=== PATIENT | female | born 1965 | race Caucasian/White ===

== ENCOUNTER 2018-03-24 16:38 | Emergency (ER) | payer BC ==
[~2018-03-24] VITALS: Ht 162.6 cm; Wt 55.3 kg
[2018-03-24] MEDS ORDERED: ANAS1TAB50 PO (16:52)
[2018-03-24] MEDS ORDERED: NYQUIL (16:52)
[2018-03-24] MEDS ORDERED: IV NORMAL SALINE 1000 ML BAG IV ONE (17:00)
--- NOTE | 2018-03-24 17:19 | NUR ---
PT IS IN ROOM #1B. DR ISABEL EVALUATED THE PT.
[2018-03-24 17:29] LABS: BASOPHILS % (AUTO) 0.5 % (0.0-2.0); EOSINOPHILS % (AUTO) 0.9 % (0.0-7.0); HEMATOCRIT 38.8 % (31.2-41.9); HEMOGLOBIN 13.4 g/dL (10.9-14.3); LYMPHOCYTES # (AUTO) 0.7 K/uL (20.0-40.0); LYMPHOCYTES % (AUTO) 28.8 % (20.5-51.5); MEAN CORPUSCULAR HEMOGLOBIN 32.5 uug (24.7-32.8); MEAN CORPUSCULAR HGB CONC 35 g/dL (32.3-35.6); MEAN CORPUSCULAR VOLUME 94.1 fL (75.5-95.3); MONOCYTES # (AUTO) 0.3 K/uL (2.0-10.0); MONOCYTES % (AUTO) 13.6 % (0.0-11.0); NEUTROPHILS # (AUTO) 1.3 K/uL (1.8-8.9); NEUTROPHILS % (AUTO) 56.2 % (38.5-71.5); PLATELET COUNT (AUTO) 282 K/uL (179-408); RED BLOOD CELL COUNT(AUTO) 4.12 MIL/uL (3.63-4.92); WHITE BLOOD COUNT (AUTO) 2.3 K/uL (3.8-11.8)
[2018-03-24 17:44] LABS: POTASSIUM 3.5 mmol/L (3.5-5.1)
[2018-03-24] MEDS ORDERED: LEVOFLOXACIN 750 MG TABLET PO ONE (17:45)
[2018-03-24] MEDS ORDERED: LEVOFLOXACIN 750 MG TABLET ONE (17:47)
[2018-03-24 17:49] LABS: BILIRUBIN,DIRECT 0.1 mg/dL (0.0-0.2); BILIRUBIN,TOTAL 0.2 mg/dL (0.2-1.0); TOTAL PROTEIN, SERUM 7.7 g/dL (6.4-8.2)
[2018-03-24] MEDS ORDERED: IBUPROFEN 600 MG TABLET ONE (18:00)
[2018-03-24] MEDS ORDERED: IBUPROFEN 600 MG TABLET PO ONE (18:00)
--- NOTE | 2018-03-24 18:04 | NUR ---
PT WAS D/C'd TO HOME AFTER DR ISABEL RE-EVALUATION. D/C INSTRUCTIONS GIVEN TO THE PT.
[2018-03-24 18:50] VITALS: BP 116/72
== END 2018-03-24 18:50 | disposition home or self-care (01) ==
LOC: ER 16:40
DX: J06.9 Acute upper respiratory infection, unspecified (principal); Z88.5 Allergy status to narcotic agent; Z88.8 Allergy status to other drugs, medicaments and biological substances; Z79.899 Other long term (current) drug therapy
CPT/HCPCS: 36415; 70030-TC; 71045; 83605; 85025; 87040; 93005; A4663; J7030

== ENCOUNTER 2019-03-25 17:29 | Emergency (ER) | payer BC ==
[~2019-03-25] VITALS: Ht 162.6 cm; Wt 57.6 kg
[~2019-03-25 17:29] MED LIST: ANAS1TAB50 PO; NYQUIL
[2019-03-25] MEDS ORDERED: OMEP20CA15 PO (17:43)
[2019-03-25 18:14] LABS: BASOPHILS % (AUTO) 1.1 % (0.0-2.0); EOSINOPHILS # (AUTO) 0.2 K/uL (0.0-0.7); EOSINOPHILS % (AUTO) 7.6 % (0.0-7.0); HEMATOCRIT 38.1 % (31.2-41.9); HEMOGLOBIN 12.7 g/dL (10.9-14.3); LYMPHOCYTES # (AUTO) 1.2 K/uL (20.0-40.0); LYMPHOCYTES % (AUTO) 40.4 % (20.5-51.5); MEAN CORPUSCULAR HEMOGLOBIN 31.4 uug (24.7-32.8); MEAN CORPUSCULAR HGB CONC 33 g/dL (32.3-35.6); MEAN CORPUSCULAR VOLUME 94.4 fL (75.5-95.3); MONOCYTES # (AUTO) 0.4 K/uL (2.0-10.0); MONOCYTES % (AUTO) 14.5 % (0.0-11.0); NEUTROPHILS # (AUTO) 1.1 K/uL (1.8-8.9); NEUTROPHILS % (AUTO) 36.4 % (38.5-71.5); PLATELET COUNT (AUTO) 283 K/uL (179-408); RED BLOOD CELL COUNT(AUTO) 4.04 MIL/uL (3.63-4.92); WHITE BLOOD COUNT (AUTO) 2.9 K/uL (3.8-11.8)
--- NOTE | 2019-03-25 18:18 | NUR ---
PT IS IN ROOM #1B. DR CHA EVALUATED THE PT.
[2019-03-25 18:22] LABS: CREATININE 0.9 mg/dL (0.6-1.3)
[2019-03-25 18:27] LABS: BILIRUBIN,DIRECT 0.1 mg/dL (0.0-0.2); BILIRUBIN,TOTAL 0.3 mg/dL (0.2-1.0); TOTAL PROTEIN, SERUM 7.5 g/dL (6.4-8.2)
--- NOTE | 2019-03-25 19:01 | NUR ---
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
--- NOTE | 2019-03-25 19:02 | NUR ---
RECEIVED HAND OFF AND SBAR RECEIVED FR DAY SHIFT OUTGOING RN
[2019-03-25 19:14] LABS: BAND % (MANUAL) 3 % (0-10); EOSINOPHILS % (MANUAL) 7 % (0-8); LYMPHOCYTES % (MANUAL) 38 % (20-40); MONOCYTES % (MANUAL) 13 % (2-10); NEUTROPHILS % (MANUAL) 39 % (42-75)
[2019-03-25] MEDS ORDERED: IV NORMAL SALINE 250 ML IV ONE (19:26)
[2019-03-25] MEDS ORDERED: SWABABLE VALVE TRANSFER SET EA MC ONE (19:26)
[2019-03-25] MEDS ORDERED: IOHEXOL 350 100 ML INFUS..BTL ONE (19:26)
[2019-03-25] MEDS ORDERED: ALBUTEROL SULFATE 2.5 MG/3 ML NEBU ONE (19:38)
[2019-03-25] MEDS ORDERED: IPRATROPIUM BROMIDE 0.5 MG/2.5 ML NEBU ONE (19:38)
--- NOTE | 2019-03-25 19:42 | NUR ---
RT AT BEDSIDE FOR BREATHING TREATMENT [employer] AT BEDSIDE PT AOX3 WITH R WRIST SALINE LOCK INTACT CONSENT SIGNED
[2019-03-25] MEDS ORDERED: IPRATROPIUM BROMIDE 0.5 MG/2.5 ML NEBU NEB ONE (19:45)
[2019-03-25] MEDS ORDERED: ALBUTEROL SULFATE 2.5 MG/3 ML NEBU NEB ONE (19:45)
[2019-03-25] MEDS ORDERED: ASPIRIN 81 MG TAB.CHEW PO ONE (20:45)
[2019-03-25] MEDS ORDERED: ASPIRIN 81 MG TAB.CHEW ONE (21:06)
--- NOTE | 2019-03-25 22:41 | NUR ---
Patient discharged to home in stable conditon. Written and verbal after care instructions given. Patient verbalizes understanding of instructions. AMBULATORY W/ STABLE GAIT ALL BELONGINGS W/ PT +SHOULDER IMMOBILIZER TO R SHOULDER INTACT IV DC, DRESSED
[2019-03-25 22:42] VITALS: BP 131/82
== END 2019-03-25 22:43 | disposition home or self-care (01) ==
LOC: ER 17:33
DX: R07.89 Other chest pain (principal); R06.02 Shortness of breath; Z88.8 Allergy status to other drugs, medicaments and biological substances; Z79.899 Other long term (current) drug therapy
CPT/HCPCS: 36415; 71045; 71275; 80048; 80076; 83880; 84484 ×2; 85007; 85025; 85730; 87400; 93005; 94640; 99284; Q9967; 70030-TC; A4663; J3590; J7050

== ENCOUNTER 2021-10-23 19:09 | Emergency (ER) | payer BC ==
[~2021-10-23] VITALS: Ht 162.6 cm; Wt 56.7 kg
[~2021-10-23 19:09] MED LIST changes: -NYQUIL; +OMEP20CA15 PO
--- NOTE | 2021-10-23 19:45 | NUR ---
Dr. Bueno at bedside. MSE in progress.
[2021-10-23] MEDS ORDERED: NITROGLYCERIN 0.4 MG/TAB BOTTLE SL ONE ×2 (20:00→20:13)
[2021-10-23] MEDS ORDERED: NITROGLYCERIN OINT 1 GM PACKET TP ONE ×2 (20:00→20:14)
[2021-10-23 20:08] LABS: HEMATOCRIT 39.2 % (31.2-41.9); MEAN CORPUSCULAR VOLUME 93.1 fL (75.5-95.3); PLATELET COUNT (AUTO) 336 K/uL (179-408)
[2021-10-23 20:15] VITALS: BP 110/66
[2021-10-23 20:16] LABS: CARBON DIOXIDE 31 mmol/L (21-32); CHLORIDE 103 mmol/L (98-107); GLUCOSE 91 mg/dL (74-106); POTASSIUM 3.6 mmol/L (3.5-5.1); UREA NITROGEN, BLOOD 16 mg/dL (7-18)
[2021-10-23 20:32] LABS: ALANINE AMINOTRANSFERASE 44 U/L (14-59); ALKALINE PHOSPHATASE 59 U/L (50-136); ASPARTATE AMINOTRANSFERASE 33 U/L (15-37); BILIRUBIN,DIRECT 0.2 mg/dL (0.0-0.2); BILIRUBIN,TOTAL 0.2 mg/dL (0.2-1.0); TOTAL PROTEIN, SERUM 7.8 g/dL (6.4-8.2)
[2021-10-23] MEDS ORDERED: SWABABLE VALVE TRANSFER SET EA MC ONE (20:39)
[2021-10-23] MEDS ORDERED: IOHEXOL 350 100 ML INFUS..BTL ONE (20:40)
[2021-10-23] MEDS ORDERED: IV NORMAL SALINE 250 ML IV ONE (20:40)
--- NOTE | 2021-10-23 20:59 | NUR ---
PATIENT TAKEN TO CT
--- NOTE | 2021-10-23 21:13 | NUR ---
Pt back from CT scan.
--- NOTE | 2021-10-23 21:44 | NUR ---
called [facility] for panel call
[2021-10-23] MEDS ORDERED: EZET10TA15 PO (21:51)
[2021-10-23] MEDS ORDERED: MONT10TA22 PO (21:51)
[2021-10-23] MEDS ORDERED: PRAV10TA40 PO (21:51)
--- NOTE | 2021-10-23 21:55 | NUR ---
Dr. Bueno on panel call with Ta Calvo NP.
--- NOTE | 2021-10-23 21:56 | NUR ---
Dr. Bueno speaking with Dr. Lopez for cardiology consult.
[2021-10-23] MEDS ORDERED: ENOXAPARIN SODIUM 60 MG/0.6 ML DISP.SYRIN SQ ONE ×2 (22:00→22:11)
--- NOTE | 2021-10-23 22:00 | NUR ---
Dr. Bueno speaking with [facility] Nursing Proposition Player Olimpia RAMSEY.
--- NOTE | 2021-10-23 22:04 | NUR ---
Called [facility] to dottie Peralta NP for [facility] transfer.
[2021-10-23] MEDS ORDERED: ASPIRIN 81 MG TAB.CHEW ONE (22:11)
--- NOTE | 2021-10-23 22:11 | NUR ---
Dr. Bueno on panel call with Jennifer Peralta NP.
[2021-10-23] MEDS ORDERED: ASPIRIN 81 MG TAB.CHEW PO ONE (22:15)
--- NOTE | 2021-10-23 22:20 | NUR ---
Called [facility] for ALS ambulance, eta [id number].
--- NOTE | 2021-10-23 22:50 | NUR ---
Report given to Evelyn RAMSEY from [facility].
--- NOTE | 2021-10-23 23:39 | NUR ---
[facility] ambulance unit 41 at bedside for tranport to [facility]
--- NOTE | 2021-10-23 23:40 | NUR ---
Patient Tranfers to [facility] Physician: Jennifer Peralta NP
== END 2021-10-23 23:40 | disposition short-term general hospital (02) ==
LOC: ER 19:11
DX: I21.4 Non-ST elevation (NSTEMI) myocardial infarction (principal); Z79.899 Other long term (current) drug therapy; Z82.49 Family history of ischemic heart disease and other diseases of the circulatory system; Z92.3 Personal history of irradiation; Z20.822 Contact with and (suspected) exposure to COVID-19; Z85.3 Personal history of malignant neoplasm of breast; Z85.118 Personal history of other malignant neoplasm of bronchus and lung; Z90.2 Acquired absence of lung [part of]
CPT/HCPCS: 99285; 71275; 71045; 87426; 80076; 80048; 83880; 85025; 84484 ×2; 36415; 93005; 96372; J1650; Q9967; A4663